=== PATIENT | female | born 1980 | race Caucasian/White ===

== ENCOUNTER 2017-07-01 15:06 | Inpatient (IN) | payer OTHER ==
[2017-07-01] MEDS ORDERED: HYDROcodone/Acetaminophen 5/325 mg Tablet PO PRN (15:22)
[2017-07-01] MEDS ORDERED: LR / Pitocin 40 units/1000 ml 1,000 ML IV PRN (15:22)
[2017-07-01] MEDS ORDERED: Ondansetron HCl/PF 4 MG/2 ML Vial IVP PRN (15:22)
[2017-07-01] MEDS ORDERED: Meperidine HCl/PF 25 MG/ML VIAL IM/IV PRN (15:22)
[2017-07-01] MEDS ORDERED: Methylergonovine 0.2 MG/ML VIAL IM PRN (15:22)
[2017-07-01] MEDS ORDERED: Ibuprofen 800 MG TAB PO PRN (15:22)
[2017-07-01] MEDS ORDERED: Promethazine HCl 25 MG/ML VIAL IM PRN (15:22)
[2017-07-01] MEDS ORDERED: Carboprost 250 MCG/ML AMP IM PRN (15:22)
[2017-07-01] MEDS ORDERED: Acetaminophen 500 MG TAB PO PRN (15:22)
[2017-07-01] MEDS ORDERED: Misoprostol 200 MCG TAB PR PRN (15:22)
[2017-07-01] MEDS ORDERED: Lidocaine 1% (PF) 30 ML VIAL SC PRN (15:22)
[2017-07-01] MEDS ORDERED: LR 500 ML/Oxytocin 10 units 500 ML IV SCH (15:30)
[2017-07-01 17:05] VITALS: BMI 27.9
[2017-07-01 17:07] LABS: Hemoglobin 13.3 g/dL (12.0-16.0); Mean Corpuscular Hemoglobin 30.5 pg (27.0-31.0); Mean Corpuscular Volume 89.9 fl (81.0-99.0); Mean Platelet Volume 8.3 fL (7.4-10.4); Platelet Count 175 thou/uL (130-400); RBC Distribution Width 12.8 % (11.5-14.5); Red Blood Cell (RBC) Count 4.37 mill/uL (4.20-5.40); White Blood Cell (WBC) Count 7.1 thou/uL (4.8-10.8)
[2017-07-01] MEDS ORDERED: FLU VACC QS2017-18 36 mo. & older 0.5 ML SYRINGE IM ONE (17:30)
[2017-07-01 17:53] LABS: Syphilis Antibody Nonreactive (Nonreactive); Syphilis Antibody Index 0.04 S/CO (<1.00 Non-Reactive)
[2017-07-01 17:54] LABS: HBSAg Index 0.15 S/CO (0-0.99); Hep B Surf Ag Non-Reactive S/CO (NonReactive)
[2017-07-01] MEDS: Lactated Ringer's 1,000 ML IV SCH (18:38)
[2017-07-01] MEDS ORDERED: Diabetic Tussin 200 MG/10 ML UDCUP PO PRN (22:01)
--- NOTE | 2017-07-01 23:59 | OP ---
PREOPERATIVE DIAGNOSIS: A 37-week intrauterine with cholestasis of . POSTOPERATIVE DIAGNOSIS: A 37-week intrauterine with cholestasis of . PROCEDURE PERFORMED: Normal spontaneous vaginal delivery. SURGEON: Shey Pardo M.D. ANESTHESIA: None. ESTIMATED BLOOD LOSS: 300 mL. BRIEF DELIVERY SUMMARY: This is a 36-year-old G7, P 5-0-2-5 at 37 and 2/7th weeks who was found to h ave cholestasis of with bile acids of 28. Risks were discussed with the patient and her hu sband and they decided to proceed with induction of labor secondary to the risks associated with chol estasis. She was brought to labor and delivery, at which time her cervix was 4, 60, and -1. She was started on Pitocin and artificial rupture of membranes was performed with clear fluid. She progress ed well to complete and pushing. She delivered a live female infant, head OA. Mouth and nares were bulb suctioned at the perineum. There was no nuchal cord. Shoulders and body easily followed and th e baby was placed on mother's abdomen. Infant Apgars were 9 at one minute and 9 at five minutes. Th e placenta delivered spontaneously and intact with 3-vessel umbilical cord. Uterine fundus was firm following evacuation of the placenta. There were no lacerations. Total estimated blood loss was 300 mL.
[2017-07-02] MEDS ORDERED: Benzocaine/Menthol 20-0.5% 60 ML CAN TOP PRN (00:46)
[2017-07-02] MEDS ORDERED: Lanolin Ointment 7 GM TUBE TOP PRN (00:46)
[2017-07-02] MEDS ORDERED: HYDROcodone/Acetaminophen 5/325 mg Tablet PO PRN (00:46)
[2017-07-02] MEDS ORDERED: Bisacodyl 10 MG SUPP PR PRN (00:46)
[2017-07-02] MEDS ORDERED: LR / Pitocin 40 units/1000 ml 1,000 ML IV SCH (00:46)
[2017-07-02] MEDS ORDERED: Milk Of Magnesia 30 ML UDCUP PO PRN (00:46)
[2017-07-02] MEDS ORDERED: Ibuprofen 800 MG TAB PO SCH (01:00)
[2017-07-02] MEDS: Cepastat Lozenges 1 LOZ PO PRN ×6 (01:16→20:44)
[2017-07-02] MEDS: Ibuprofen 800 MG TAB PO SCH ×3 (05:26→20:44)
[2017-07-02] MEDS: Lactated Ringer's 1,000 ML IV SCH (07:21)
[2017-07-02] MEDS ORDERED: Prenatal Vitamin 1 TAB PO SCH (09:00)
[2017-07-02] MEDS: Ferrous Sulfate 325 MG TAB PO SCH ×2 (09:16→15:04)
[2017-07-02] MEDS: Acetaminophen 325 MG TAB PO PRN ×2 (09:20→15:03)
[2017-07-02] MEDS: Docusate Calcium (SURFAK) 240 MG CAP PO SCH ×2 (09:20→20:44)
[2017-07-02 21:02] VITALS: BP 117/67; TEMP 97.6
== END 2017-07-02 22:50 | disposition home or self-care (01) | DRG 775 ==
LOC: L&D 15:06 → 3SW 07-02 00:41
PROVIDERS: ADMIT Family Medicine; ATTEND Family Medicine
PROC: 10E0XZZ Delivery of Products of Conception, External Approach (ICD-10-PCS; principal; 2017-07-01)
PROC: 3E033VJ Introduction of Other Hormone into Peripheral Vein, Percutaneous Approach (ICD-10-PCS; 2017-07-01)
PROC: 10907ZC Drainage of Amniotic Fluid, Therapeutic from Products of Conception, Via Natural or Artificial Opening (ICD-10-PCS; 2017-07-01)
DX: O26.62 Liver and biliary tract disorders in childbirth (principal); K83.1 Obstruction of bile duct; Z3A.37 37 weeks gestation of pregnancy; Z37.0 Single live birth
CPT/HCPCS: 85027; 86780; 87340; J2001; J7120